=== PATIENT | female | born 1990 | race Caucasian/White ===

== ENCOUNTER 2020-05-01 03:06 | Emergency (ER) | payer MEDICAID, OTHER ==
[~2020-05-01] VITALS: Ht 170.2 cm; Wt 72.7 kg
--- NOTE | 2020-05-01 04:14 | NUR ---
Urine collected and sent to lab.
[2020-05-01 04:25] LABS: BASOPHILS % (AUTO) 1 % (0-1); EOSINOPHILS % (AUTO) 2 % (1-7); LYMPHOCYTES % (AUTO) 30 % (22-44); MEAN CORPUSCULAR HEMOGLOBIN 33.2 pg (27.0-34.8); MEAN PLATELET VOLUME 9.3 fL (7.4-10.4); MONOCYTES % (AUTO) 6 % (2-9); NEUTROPHILS % (AUTO) 62 % (42-75); PLATELET COUNT 240 x10^3/uL (130-400); RED CELL DISTRIBUTION WIDTH 12.9 % (9.6-15.2)
[2020-05-01 04:27] LABS: MD NO
[2020-05-01 04:32] LABS: HCG UR SG 1.015 (1.003-1.030)
[2020-05-01 04:33] LABS: MICROSCOPIC INDICATED
[2020-05-01 04:36] LABS: CHLORIDE 109 mmol/L (98-107)
[2020-05-01 04:42] LABS: ALANINE AMINOTRANSFERASE 13 U/L (12-78); ALBUMIN 3.6 g/dL (3.4-5.0); ALKALINE PHOSPHATASE 62 U/L (45-117); ANION GAP 5 mmol/L (5-15); BILIRUBIN,TOTAL 0.3 mg/dL (0.2-1.0); CALCIUM 9.1 mg/dL (8.5-10.1); CREATININE 0.74 mg/dL (0.55-1.02); TOTAL PROTEIN 7.2 g/dL (6.4-8.2)
--- NOTE | 2020-05-01 05:32 | NUR ---
Patient to room from lobby.
[2020-05-01 05:42] VITALS: BP 117/62
[2020-05-01] MEDS ORDERED: RHOGAM FROM BLOOD BANK 1 NOTE EA IM/IV ONE (07:00)
--- NOTE | 2020-05-01 07:00 | NUR ---
[facility] REQUESTED FROM BLOOD BANK. BLOOD BANK NOTIFIED THIS RN THAT A SECOND ORDER IS REQUIRED. MATTHEW ANGEL ENTERED ORDER.
--- NOTE | 2020-05-01 07:29 | NUR ---
Patient given discharge instructions and they have confirmed that they understand the instructions. Patient ambulatory with steady gait.
== END 2020-05-01 07:30 | disposition home or self-care (01) ==
LOC: ED 06:20
DX: O26.891 Other specified pregnancy related conditions, first trimester (principal); N89.8 Other specified noninflammatory disorders of vagina; R10.31 Right lower quadrant pain; F17.210 Nicotine dependence, cigarettes, uncomplicated; Z3A.09 9 weeks gestation of pregnancy
CPT/HCPCS: 36415; 76801; 80053; 81001; 81025; 83690; 84702; 85025; 86850; 86900; 87086; 96372; 99284; J2790